=== PATIENT | male | born 1950 | race Hispanic/Latino ===

== ENCOUNTER 2023-06-12 05:46 | Day surgery (SDC) | payer MEDICARE ==
[2023-06-08 15:26] LABS: BASOPHILS # (AUTO) 0.02 K/uL (0.00-0.20); BASOPHILS % (AUTO) 0.5 % (0.0-5.0); EOSINOPHILS # (AUTO) 0.09 K/uL (0.00-0.70); EOSINOPHILS % (AUTO) 2.4 % (0.0-8.0); HEMATOCRIT 42.4 % (42-54); IMMATURE GRANULOCYTE ABSOLUTE 0.01 K/uL (0-1); LYMPHOCYTES # (AUTO) 0.9 K/uL (1.0-4.8); MEAN CORPUSCULAR HEMOGLOBIN 32.4 pg (27.0-33.0); MEAN CORPUSCULAR HGB CONC 34.2 g/dL (32.0-36.0); MEAN CORPUSCULAR VOLUME 94.6 fL (79-99); MONOCYTES # (AUTO) 0.4 K/uL (0.1-1.0); MONOCYTES % (AUTO) 11.6 % (3.0-13.0); NEUTROPHILS # (AUTO) 2.3 K/uL (1.8-7.7); NEUTROPHILS % (AUTO) 62.2 % (40.0-77.0); PLATELET COUNT (AUTO) 197 K/uL (130-400); RED BLOOD CELL COUNT(AUTO) 4.48 MIL/uL (4.50-6.20); RED CELL DISTRIBUTION WIDTH 12.2 % (11.0-15.5); WHITE BLOOD COUNT (AUTO) 3.7 K/uL (4.8-10.8)
[2023-06-08 15:33] LABS: CREATININE 0.8 mg/dL (0.5-1.5); POTASSIUM 4.3 mmol/L (3.5-5.1)
[2023-06-08 15:55] LABS: INR 0.93 (0.85-1.15); PROTHROMBIN TIME 10.7 SEC (9.6-11.6)
[2023-06-08 15:57] LABS: PARTIAL THROMBOPLASTIN TIME 27.1 SEC (26.3-35.5)
[2023-06-08 16:05] VITALS: BP 151/83; PULSE 73; RESP 19
[2023-06-12] VITALS (17 sets, daily range): BP systolic 112–151; BP diastolic 66–81; PULSE 58–74; RESP 12–17
[~2023-06-12] VITALS: Ht 170.2 cm; Wt 73.4 kg
[2023-06-12] MEDS ORDERED: LACTATED RINGERS 1000ML 1,000 ML IV ONE (06:07)
[2023-06-12] MEDS ORDERED: SAW PALMETTO PO (06:18)
[2023-06-12] MEDS ORDERED: MVIT PO (06:18)
[2023-06-12] MEDS ORDERED: VITA1CAP85 PO (06:18)
[2023-06-12] MEDS ORDERED: FOLIC ACID PO (06:18)
[2023-06-12] MEDS ORDERED: L.AC1CAP6 PO (06:18)
[2023-06-12] MEDS ORDERED: BERBERINE PO (06:18)
[2023-06-12] MEDS ORDERED: UBIQ100C2 PO (06:18)
[2023-06-12] MEDS ORDERED: CEFAZOLIN SODIUM 2 GM VIAL ONE (06:30)
[2023-06-12] MEDS ORDERED: LIDOCAINE PF 100MG/5ML (2%) SYRINGE 5ML ONE (07:07)
[2023-06-12] MEDS ORDERED: FENTANYL CITRATE PF 50 MCG/1 ML 2ML VIAL ONE (07:07)
[2023-06-12] MEDS ORDERED: ROCURONIUM 10MG/1ML SYR 10 MG/ML ML ONE (07:07)
[2023-06-12] MEDS ORDERED: PROPOFOL 10 MG/ML 20ML VIAL IV ONE (07:07)
[2023-06-12] MEDS ORDERED: MIDAZOLAM HCL 1 MG/ML 2ML VIAL ONE (07:07)
[2023-06-12] MEDS ORDERED: BUPIVACAINE/PF 0.5% 30ML VIAL ONE (07:09)
[2023-06-12] MEDS ORDERED: DEXAMETHASONE SOD PHOSPHATE 4 MG/ML 1ML VIAL ONE (07:28)
[2023-06-12] MEDS ORDERED: ONDANSETRON 4MG INJ ONE (07:29)
[2023-06-12] MEDS ORDERED: PHENYLEPHRINE HCL 10 MG/ML 1ML VIAL IV ONE (07:38)
[2023-06-12] MEDS ORDERED: GLYCOPYRROLATE 1 MG/5 ML SYRINGE ONE (07:50)
[2023-06-12] MEDS ORDERED: NEOSTIGMINE 5MG/5ML SYR IV ONE (07:50)
[2023-06-12] MEDS ORDERED: KETOROLAC 30MG VIAL (30MG/ML) ONE (07:51)
== END 2023-06-12 09:45 | disposition home or self-care (01) ==
LOC: DAH 05:46
PROVIDERS: ATTEND Surgery
DX: D17.0 Benign lipomatous neoplasm of skin and subcutaneous tissue of head, face and neck (principal); Z20.822 Contact with and (suspected) exposure to COVID-19; Z82.49 Family history of ischemic heart disease and other diseases of the circulatory system; Z83.3 Family history of diabetes mellitus; Z98.890 Other specified postprocedural states; Z79.01 Long term (current) use of anticoagulants; Z79.899 Other long term (current) drug therapy; Z82.0 Family history of epilepsy and other diseases of the nervous system
CPT/HCPCS: 93005; 87426; 80048; 85025; 85610; 85730; 36415; 21554; 21556; A6260; J1100; A4663 ×2; J7120; J3010; J3490 ×2; J2710; J2001; J2250; J2704; J2405; J1885; J2371; J0690; A4215 ×2; A4222 ×2; A6450; A4223 ×2; A4221 ×2